=== PATIENT | male | born 1975 | race Caucasian/White ===

== ENCOUNTER 2023-06-19 06:28 | Day surgery (SDC) | payer BC, SELFPAY ==
[2023-06-19] VITALS (7 sets, daily range): BP systolic 107–130; BP diastolic 63–81; BMI 25.1
[2023-06-19] MEDS: NORMOSOL-R 1000 IV (09:08)
== END 2023-06-19 13:05 | disposition home or self-care (01) ==
LOC: SDS 06:28
PROVIDERS: ATTENDING PHYSICIAN Otolaryngology
DX: J34.2 Deviated nasal septum (principal); J34.3 Hypertrophy of nasal turbinates
CPT/HCPCS: 30520

== ENCOUNTER → 2023-11-04 11:38 | Outpatient (REF) | payer BC, SELFPAY | LOC: PAVMRI 11:38 | PROVIDERS: ATTENDING PHYSICIAN Family Medicine | DX: M54.50 Low back pain, unspecified (principal) | CPT/HCPCS: 72148 ==

== ENCOUNTER → 2024-05-31 11:51 | Outpatient (REF) | payer BC, SELFPAY | LOC: HWRAD 11:51 | PROVIDERS: ATTENDING PHYSICIAN Family Medicine | DX: R05.9 Cough, unspecified (principal) | CPT/HCPCS: 71046 ==